=== PATIENT | male | born 1965 | race Caucasian/White ===

== ENCOUNTER 2020-02-28 15:00 | Emergency (ER) | payer SELFPAY ==
[~2020-02-28] VITALS: Ht 177.8 cm; Wt 70.5 kg
[2020-02-28 15:06] VITALS: BP 108/63
== END 2020-02-28 19:06 | disposition left against medical advice (07) ==
LOC: EMS 15:00
DX: T14.8XXA Other injury of unspecified body region, initial encounter (principal); Z53.21 Procedure and treatment not carried out due to patient leaving prior to being seen by health care provider; X58.XXXA Exposure to other specified factors, initial encounter; Y93.89 Activity, other specified; Y92.89 Other specified places as the place of occurrence of the external cause; Y99.8 Other external cause status

== ENCOUNTER 2020-06-09 17:58 | Inpatient (IN) | payer MEDICAID ==
[~2020-06-09] VITALS: Ht 177.8 cm; Wt 82.2 kg
[2020-06-09] MEDS ORDERED: DIVA125T32 PO (18:04)
[2020-06-09] MEDS ORDERED: RISP0.5T39 PO (18:04)
[2020-06-09] MEDS ORDERED: BENZ0.5T44 PO (18:04)
[2020-06-09 21:00] VITALS: BP 102/63
[2020-06-09] MEDS ORDERED: INFLUENZA VIRUS VACCINE QVS 2020-21 (6MO+)/PF 60 MCG/0.5 ML SYRINGE IM ONE (21:15)
[2020-06-10 03:36] VITALS: BP 110/68
[2020-06-10 08:14] LABS: BASOPHILS % (AUTO) 0.9 % (0.0-2.0); EOSINOPHILS % (AUTO) 2.2 % (1.0-6.0); HEMATOCRIT 37.5 % (41-53); HEMOGLOBIN 12.3 g/dL (13.5-17.5); LYMPHOCYTES # (AUTO) 1.1 K/uL (1.0-4.8); MEAN CORPUSCULAR HEMOGLOBIN 26.5 pg (26.0-34.0); MEAN CORPUSCULAR HGB CONC 32.9 G/dL (31.0-37.0); MEAN CORPUSCULAR VOLUME 81 fL (80-100); MONOCYTES # (AUTO) 0.4 K/uL (0.1-1.0); NEUTROPHILS # (AUTO) 7.1 K/uL (1.8-7.7); NEUTROPHILS % (AUTO) 79.9 % (40.0-70.0); PLATELET COUNT (AUTO) 348 K/uL (150-450); RED BLOOD CELL COUNT(AUTO) 4.64 MIL/uL (4.50-5.90)
[2020-06-10 08:27] LABS: HEMOGLOBIN A1C 5.8 % (3.8-5.6)
[2020-06-10 08:48] LABS: ALANINE AMINOTRANSFERASE 41 U/L (12-78); ALBUMIN 3.1 g/dL (3.4-5.0); ALKALINE PHOSPHATASE 60 U/L (46-116); ANION GAP 5 mmol/L (8-16); ASPARTATE AMINOTRANSFERASE 23 U/L (15-37); BILIRUBIN,TOTAL 0.3 mg/dL (0.1-1.0); CALCIUM, TOTAL 8.5 mg/dL (8.8-10.5); CARBON DIOXIDE 28 mmol/L (22-29); CHLORIDE 107 mmol/L (98-107); CHOLESTEROL 123 mg/dL (131-200); CREATININE 0.95 mg/dL (0.60-1.30); FREE T4 (FREE THYROXINE) 1.24 ng/dL (0.76-1.46); GLOMERULAR FILTR. RATE CALC > 60 mL/min (>60); GLUCOSE,RANDOM 113 mg/dL (70-110); HDL CHOLESTEROL 61 mg/dL (40-60); LDL CHOL (CALC.) 50 mg/dL (0-130); POTASSIUM 3.7 mmol/L (3.5-5.1); SODIUM SERUM 140 mmol/L (136-145); THYROID STIMULATING HORMONE 0.43 uIU/mL (0.36-3.74); TOTAL PROTEIN, SERUM 7.5 g/dL (6.4-8.2); TRIGLYCERIDES 58 mg/dL (15-150); UREA NITROGEN, BLOOD 11 mg/dL (7-18)
[2020-06-10] MEDS: RisperiDONE 2 MG TABLET PO SCH ×2 (08:49→17:07)
[2020-06-10 09:12] VITALS: BP 124/78
[2020-06-10] MEDS ORDERED: DOCUSATE SODIUM 100 MG CAPSULE PO PRN (11:45)
[2020-06-10] MEDS ORDERED: BENZOCAINE/MENTHOL LOZENGE PO PRN (11:45)
[2020-06-10] MEDS ORDERED: ALBUTEROL SULFATE HFA 90 MCG/PUFF 8 GM INHALER IH PRN (11:45)
[2020-06-10] MEDS ORDERED: ONDANSETRON HCL 4 MG TABLET PO PRN (11:45)
[2020-06-10] MEDS ORDERED: MAGNESIUM HYDROXIDE SUSPENSION 30 ML UDCUP PO PRN (11:45)
[2020-06-10] MEDS ORDERED: BACITRACIN 28 GM OINTMENT TP PRN (11:45)
[2020-06-10] MEDS ORDERED: LOPERAMIDE HCL 2 MG CAPSULE PO PRN (11:45)
[2020-06-10] MEDS ORDERED: ACETAMINOPHEN 325 MG TABLET PO PRN (11:45)
[2020-06-10] MEDS ORDERED: CloNIDine HCL 0.1 MG TABLET PO PRN (11:45)
[2020-06-10] MEDS ORDERED: OMEPRAZOLE 20 MG CAPSULE PO PRN (11:45)
[2020-06-10] MEDS ORDERED: PETROLATUM,WHITE 28 GM JELLY TP PRN (11:45)
[2020-06-10] MEDS ORDERED: IBUPROFEN 600 MG TABLET PO PRN (11:45)
[2020-06-11 01:36] VITALS: BP 134/89
[2020-06-11 08:52] VITALS: BP 127/82
[2020-06-11] MEDS: RisperiDONE 2 MG TABLET PO SCH ×2 (09:54→18:23)
[2020-06-11] MEDS: LORazepam 2 MG TABLET PO PRN (10:52)
[2020-06-11] MEDS: HALOPERIDOL 5 MG TABLET PO PRN (10:52)
[2020-06-11 16:53] VITALS: BP 126/81
[2020-06-12 06:29] VITALS: BP 121/79
[2020-06-12 08:46] VITALS: BP 145/92
[2020-06-12] MEDS: RisperiDONE 2 MG TABLET PO SCH (08:58)
[2020-06-12] MEDS: HALOPERIDOL 5 MG TABLET PO PRN (08:58)
[2020-06-12] MEDS: LORazepam 2 MG TABLET PO PRN (08:58)
[2020-06-12] MEDS ORDERED: DiphenhydrAMINE HCL 50 MG/ML VIAL IM ONE (09:30)
[2020-06-12] MEDS: OLANZapine 5 MG TABLET PO SCH (20:31)
[2020-06-13 02:35] VITALS: BP 130/91
[2020-06-13 08:20] VITALS: BP 133/84
[2020-06-13] MEDS: LORazepam 2 MG TABLET PO PRN (10:58)
[2020-06-13] MEDS: HALOPERIDOL 5 MG TABLET PO PRN (10:58)
[2020-06-13 16:24] VITALS: BP 120/75
[2020-06-13] MEDS: OLANZapine 5 MG TABLET PO SCH (21:12)
[2020-06-14 01:18] VITALS: BP 125/68
[2020-06-14 08:59] VITALS: BP 119/81
[2020-06-14] MEDS: LORazepam 2 MG TABLET PO PRN (11:03)
[2020-06-14 16:24] VITALS: BP 100/57
[2020-06-14] MEDS: OLANZapine 5 MG TABLET PO SCH (20:16)
[2020-06-14] MEDS: ZOLPIDEM TARTRATE 10 MG TABLET PO PRN (20:52)
[2020-06-15 04:41] VITALS: BP 118/77
[2020-06-15 17:34] VITALS: BP 130/82
[2020-06-15] MEDS: ZOLPIDEM TARTRATE 10 MG TABLET PO PRN (19:48)
[2020-06-15] MEDS: OLANZapine 5 MG TABLET PO SCH (20:00)
[2020-06-16 03:53] VITALS: BP 116/74
[2020-06-16 08:44] VITALS: BP 124/74
[2020-06-16] MEDS: HALOPERIDOL 5 MG TABLET PO PRN (09:53)
[2020-06-16] MEDS: LORazepam 2 MG TABLET PO PRN (09:53)
[2020-06-16 16:20] VITALS: BP 135/90
[2020-06-16] MEDS: OLANZapine 7.5 MG TABLET PO SCH (21:00)
[2020-06-17 04:26] VITALS: BP 121/70
[2020-06-17 09:02] LABS: % IRON SATURATION 7.6 % (30-44)
[2020-06-17] MEDS: HALOPERIDOL 5 MG TABLET PO PRN ×2 (09:09→18:23)
[2020-06-17] MEDS: MULTIVITAMINS WITH MINERALS, THERAPEUTIC TABLET PO SCH (09:09)
[2020-06-17 09:24] VITALS: BP 115/76
[2020-06-17] MEDS: LORazepam 2 MG TABLET PO PRN ×2 (11:16→18:23)
[2020-06-17 17:12] VITALS: BP 115/71
[2020-06-17] MEDS: OLANZapine 7.5 MG TABLET PO SCH (20:25)
[2020-06-17] MEDS: ZOLPIDEM TARTRATE 10 MG TABLET PO PRN (20:26)
[2020-06-18 05:14] VITALS: BP 112/67
[2020-06-18 08:39] VITALS: BP 127/76
[2020-06-18] MEDS: MULTIVITAMINS WITH MINERALS, THERAPEUTIC TABLET PO SCH (08:58)
[2020-06-18] MEDS: LORazepam 2 MG TABLET PO PRN ×2 (09:03→16:50)
[2020-06-18 17:06] VITALS: BP 121/78
[2020-06-18] MEDS: OLANZapine 7.5 MG TABLET PO SCH (20:59)
[2020-06-19 04:44] VITALS: BP 119/72
[2020-06-19] MEDS: LORazepam 2 MG TABLET PO PRN ×2 (06:38→16:29)
[2020-06-19 08:16] VITALS: BP 130/81
[2020-06-19] MEDS: MULTIVITAMINS WITH MINERALS, THERAPEUTIC TABLET PO SCH (09:25)
[2020-06-19 16:38] VITALS: BP 106/66
[2020-06-19] MEDS: OLANZapine 7.5 MG TABLET PO SCH (20:33)
[2020-06-20 05:01] VITALS: BP 123/85
[2020-06-20 08:11] VITALS: BP 126/75
[2020-06-20] MEDS: HALOPERIDOL 5 MG TABLET PO PRN ×2 (08:39→13:53)
[2020-06-20] MEDS: MULTIVITAMINS WITH MINERALS, THERAPEUTIC TABLET PO SCH (08:39)
[2020-06-20] MEDS: LORazepam 2 MG TABLET PO PRN (08:40)
[2020-06-20 17:00] VITALS: BP 129/80
[2020-06-20] MEDS: OLANZapine 7.5 MG TABLET PO SCH (21:12)
[2020-06-21 02:41] VITALS: BP 128/78
[2020-06-21] MEDS: ZOLPIDEM TARTRATE 10 MG TABLET PO PRN (02:46)
[2020-06-21] MEDS: MULTIVITAMINS WITH MINERALS, THERAPEUTIC TABLET PO SCH (08:25)
[2020-06-21 08:41] VITALS: BP 134/94
[2020-06-21] MEDS: LORazepam 2 MG TABLET PO PRN (10:02)
[2020-06-21 16:10] VITALS: BP 136/86
[2020-06-21] MEDS: HALOPERIDOL 5 MG TABLET PO PRN (17:30)
[2020-06-21] MEDS: OLANZapine 7.5 MG TABLET PO SCH (20:40)
[2020-06-22 01:01] VITALS: BP 122/83
[2020-06-22 08:55] VITALS: BP 106/60
[2020-06-22] MEDS: MULTIVITAMINS WITH MINERALS, THERAPEUTIC TABLET PO SCH (09:31)
[2020-06-22] MEDS: LORazepam 2 MG TABLET PO PRN (14:27)
[2020-06-22 16:19] VITALS: BP 11/62
[2020-06-22] MEDS: OLANZapine 7.5 MG TABLET PO SCH (20:36)
[2020-06-22] MEDS: ZOLPIDEM TARTRATE 10 MG TABLET PO PRN (23:07)
[2020-06-23 05:00] VITALS: BP 129/78
[2020-06-23 08:31] VITALS: BP 114/60
[2020-06-23] MEDS: MULTIVITAMINS WITH MINERALS, THERAPEUTIC TABLET PO SCH (09:34)
[2020-06-23] MEDS: LORazepam 2 MG TABLET PO PRN ×2 (10:32→20:31)
[2020-06-23 16:35] VITALS: BP 113/79
[2020-06-23] MEDS: OLANZapine 7.5 MG TABLET PO SCH (20:29)
[2020-06-24 00:38] VITALS: BP 119/80
[2020-06-24 08:30] VITALS: BP 112/66
[2020-06-24] MEDS: HALOPERIDOL 5 MG TABLET PO PRN (08:40)
[2020-06-24] MEDS: LORazepam 2 MG TABLET PO PRN ×2 (08:40→16:17)
[2020-06-24] MEDS: MULTIVITAMINS, THERAPEUTIC TABLET PO SCH (08:40)
[2020-06-24 16:32] VITALS: BP 125/81
[2020-06-24] MEDS: OLANZapine 7.5 MG TABLET PO SCH (20:06)
[2020-06-24] MEDS: ZOLPIDEM TARTRATE 10 MG TABLET PO PRN (20:06)
[2020-06-25 03:28] VITALS: BP 118/76
[2020-06-25] MEDS: MULTIVITAMINS, THERAPEUTIC TABLET PO SCH (06:59)
[2020-06-25 09:43] VITALS: BP 99/66
[2020-06-25] MEDS: LORazepam 2 MG TABLET PO PRN ×2 (12:45→18:06)
[2020-06-25] MEDS: HALOPERIDOL 5 MG TABLET PO PRN ×2 (12:47→18:06)
[2020-06-25 16:22] VITALS: BP 119/75
[2020-06-25] MEDS: OLANZapine 7.5 MG TABLET PO SCH (20:33)
[2020-06-26 05:50] VITALS: BP 129/79
[2020-06-26] MEDS: MULTIVITAMINS, THERAPEUTIC TABLET PO SCH (06:46)
[2020-06-26 08:32] VITALS: BP 112/62
[2020-06-26] MEDS: LORazepam 2 MG TABLET PO PRN (14:33)
[2020-06-26 16:15] VITALS: BP 123/90
[2020-06-26] MEDS: OLANZapine 7.5 MG TABLET PO SCH (20:01)
[2020-06-27 00:42] VITALS: BP 117/65
[2020-06-27] MEDS: MULTIVITAMINS, THERAPEUTIC TABLET PO SCH (06:48)
[2020-06-27 08:26] VITALS: BP 128/66
[2020-06-27 16:25] VITALS: BP 131/82
[2020-06-27] MEDS: OLANZapine 7.5 MG TABLET PO SCH (20:23)
[2020-06-27] MEDS: MAG HYDROX/AL HYDROX/SIMETH ES 30 ML SUSPENSION UDCUP PO PRN (21:23)
[2020-06-28] MEDS: ZOLPIDEM TARTRATE 10 MG TABLET PO PRN (00:09)
[2020-06-28 00:50] VITALS: BP 128/82
[2020-06-28] MEDS: MULTIVITAMINS, THERAPEUTIC TABLET PO SCH (07:12)
[2020-06-28 08:27] VITALS: BP 130/80
[2020-06-28 16:32] VITALS: BP 119/80
[2020-06-28] MEDS: OLANZapine 7.5 MG TABLET PO SCH (19:52)
[2020-06-29 04:49] VITALS: BP 121/78
[2020-06-29 08:23] VITALS: BP 133/86
[2020-06-29] MEDS: MULTIVITAMINS, THERAPEUTIC TABLET PO SCH (09:08)
[2020-06-29 16:48] VITALS: BP 130/80
[2020-06-29] MEDS: OLANZapine 7.5 MG TABLET PO SCH (20:48)
[2020-06-30 03:27] VITALS: BP 129/82
[2020-06-30] MEDS: MULTIVITAMINS, THERAPEUTIC TABLET PO SCH (06:36)
[2020-06-30] MEDS: MAG HYDROX/AL HYDROX/SIMETH ES 30 ML SUSPENSION UDCUP PO PRN (07:49)
[2020-06-30 08:33] VITALS: BP 126/68
[2020-06-30] MEDS: HALOPERIDOL 5 MG TABLET PO PRN (16:19)
[2020-06-30] MEDS: LORazepam 2 MG TABLET PO PRN (16:19)
[2020-06-30 16:26] VITALS: BP 126/88
[2020-06-30] MEDS: OLANZapine 7.5 MG TABLET PO SCH (20:22)
[2020-07-01] MEDS: MULTIVITAMINS, THERAPEUTIC TABLET PO SCH (06:45)
[2020-07-01 06:53] VITALS: BP 138/81
[2020-07-01 08:16] VITALS: BP 129/68
[2020-07-01 08:35] LABS: COVID AG,FIA SOURCE NASOPHARYNGEAL
[2020-07-01 16:53] VITALS: BP 136/93
[2020-07-01] MEDS: ZOLPIDEM TARTRATE 10 MG TABLET PO PRN (20:49)
[2020-07-01] MEDS: OLANZapine 7.5 MG TABLET PO SCH (20:49)
[2020-07-02 05:17] VITALS: BP 125/78
[2020-07-02] MEDS: MULTIVITAMINS, THERAPEUTIC TABLET PO SCH (06:53)
[2020-07-02] MEDS: LORazepam 2 MG TABLET PO PRN ×2 (08:41→23:39)
[2020-07-02] MEDS: HALOPERIDOL 5 MG TABLET PO PRN ×2 (08:41→23:39)
[2020-07-02 09:24] VITALS: BP 141/72
[2020-07-02 16:28] VITALS: BP 119/68
[2020-07-02] MEDS: OLANZapine 7.5 MG TABLET PO SCH (20:03)
[2020-07-02] MEDS: ZOLPIDEM TARTRATE 10 MG TABLET PO PRN (22:02)
[2020-07-03 00:01] VITALS: BP 106/80
[2020-07-03] MEDS: MULTIVITAMINS, THERAPEUTIC TABLET PO SCH (06:42)
[2020-07-03 09:00] VITALS: BP 101/60
[2020-07-03] MEDS: HALOPERIDOL 5 MG TABLET PO PRN (09:07)
[2020-07-03] MEDS: LORazepam 2 MG TABLET PO PRN (09:07)
[2020-07-03 16:35] VITALS: BP 119/65
[2020-07-03] MEDS: OLANZapine 7.5 MG TABLET PO SCH (20:50)
[2020-07-03] MEDS: ZOLPIDEM TARTRATE 10 MG TABLET PO PRN (21:02)
[2020-07-04 01:24] VITALS: BP 116/74
[2020-07-04] MEDS: MULTIVITAMINS, THERAPEUTIC TABLET PO SCH (06:17)
[2020-07-04 08:15] VITALS: BP 108/83
[2020-07-04] MEDS: LORazepam 2 MG TABLET PO PRN (14:50)
[2020-07-04] MEDS ORDERED: DiphenhydrAMINE HCL 50 MG/ML VIAL ONE (15:13)
[2020-07-04] MEDS ORDERED: DiphenhydrAMINE HCL 50 MG/ML VIAL IM ONE (15:15)
[2020-07-04] MEDS: BENZTROPINE MESYLATE 1 MG TABLET PO SCH (16:05)
[2020-07-04 16:24] VITALS: BP 113/78
[2020-07-04] MEDS: OLANZapine 7.5 MG TABLET PO SCH (20:20)
[2020-07-04] MEDS: ZOLPIDEM TARTRATE 10 MG TABLET PO PRN (20:24)
[2020-07-04 21:30] VITALS: BP 115/58
[2020-07-05 04:57] VITALS: BP 144/89
[2020-07-05] MEDS: MULTIVITAMINS, THERAPEUTIC TABLET PO SCH (06:33)
[2020-07-05] MEDS: BENZTROPINE MESYLATE 1 MG TABLET PO SCH (08:24)
[2020-07-05] MEDS ORDERED: BENZ1TAB10 PO (10:20)
[2020-07-05] MEDS ORDERED: OLAN10TA3 PO (10:20)
== END 2020-07-05 11:50 | disposition home or self-care (01) | DRG 750 ==
LOC: B3A 20:57 → B2S 06-25 13:47
PROVIDERS: ADMIT Psychiatry & Neurology Psychiatry; ATTEND Psychiatry & Neurology Psychiatry
DX: F25.9 Schizoaffective disorder, unspecified (principal); R45.851 Suicidal ideations; Z59.0 Homelessness; F17.200 Nicotine dependence, unspecified, uncomplicated; F12.90 Cannabis use, unspecified, uncomplicated; F41.9 Anxiety disorder, unspecified; G47.00 Insomnia, unspecified; K59.00 Constipation, unspecified; Z20.822 Contact with and (suspected) exposure to COVID-19; Z23 Encounter for immunization
CPT/HCPCS: 83036; 83540; 83550; 84439; 84443; 87426; 90686; J1200

== ENCOUNTER 2020-08-20 16:02 | Emergency (ER) | payer MEDICAID, OTHER ==
[~2020-08-20] VITALS: Ht 180.3 cm; Wt 80.9 kg
[~2020-08-20 16:02] MED LIST: BENZ1TAB10 PO; OLAN10TA74 PO
[2020-08-20 17:58] LABS: AMPHET/METH SCREEN,URINE NEGATIVE (NEGATIVE); BARBITURATE SCREEN, URINE NEGATIVE (NEGATIVE); BENZODIAZEPINES SCREEN,URINE NEGATIVE (NEGATIVE); CANNABINOID SCREEN,URINE POSITIVE (NEGATIVE); COCAINE SCREEN,URINE NEGATIVE (NEGATIVE); METHADONE SCREEN, URINE NEGATIVE (NEGATIVE); OPIATE SCREEN,URINE NEGATIVE (NEGATIVE); PHENCYCLIDINE SCREEN,URINE NEGATIVE (NEGATIVE)
[2020-08-20 18:17] LABS: BASOPHILS % (AUTO) 1.9 % (0.0-2.0); EOSINOPHILS % (AUTO) 2.4 % (1.0-6.0); HEMATOCRIT 37.7 % (41-53); HEMOGLOBIN 12.1 g/dL (13.5-17.5); LYMPHOCYTES # (AUTO) 1.7 K/uL (1.0-4.8); LYMPHOCYTES % (AUTO) 31.2 % (22.0-44.0); MEAN CORPUSCULAR HEMOGLOBIN 26.1 pg (26.0-34.0); MEAN CORPUSCULAR VOLUME 81 fL (80-100); MONOCYTES # (AUTO) 0.6 K/uL (0.1-1.0); MONOCYTES % (AUTO) 11.2 % (2.0-9.0); NEUTROPHILS # (AUTO) 2.9 K/uL (1.8-7.7); NEUTROPHILS % (AUTO) 53.3 % (40.0-70.0); PLATELET COUNT (AUTO) 308 K/uL (150-450); RED BLOOD CELL COUNT(AUTO) 4.64 MIL/uL (4.50-5.90); RED CELL DISTRIBUTION WIDTH 17.5 % (11.5-14.5)
[2020-08-20 18:28] LABS: ANION GAP 8 mmol/L (8-16); CALCIUM, TOTAL 8.1 mg/dL (8.8-10.5); CARBON DIOXIDE 28 mmol/L (22-29); CHLORIDE 104 mmol/L (98-107); CREATININE 0.87 mg/dL (0.60-1.30); GLOMERULAR FILTR. RATE CALC > 60 mL/min (>60); GLUCOSE,RANDOM 89 mg/dL (70-110); POTASSIUM 3.9 mmol/L (3.5-5.1); SODIUM SERUM 140 mmol/L (136-145); UREA NITROGEN, BLOOD 12 mg/dL (7-18)
[2020-08-20 18:31] LABS: ALANINE AMINOTRANSFERASE 51 U/L (12-78); ALBUMIN 3.8 g/dL (3.4-5.0); ALKALINE PHOSPHATASE 70 U/L (46-116); ASPARTATE AMINOTRANSFERASE 31 U/L (15-37); BILIRUBIN,TOTAL 0.4 mg/dL (0.1-1.0); TOTAL PROTEIN, SERUM 7.5 g/dL (6.4-8.2)
[2020-08-20 18:49] LABS: COVID AG,FIA SOURCE NASOPHARYNGEAL
[2020-08-20] MEDS ORDERED: LORazepam 1 MG TABLET PO ONE (19:15)
[2020-08-20] MEDS ORDERED: IBUPROFEN 600 MG TABLET PO ONE (19:30)
[2020-08-20 19:40] VITALS: BP 129/77
== END 2020-08-20 19:50 | disposition home or self-care (01) ==
LOC: EMS 16:02
DX: F20.9 Schizophrenia, unspecified (principal); F17.210 Nicotine dependence, cigarettes, uncomplicated; F41.9 Anxiety disorder, unspecified; Z20.822 Contact with and (suspected) exposure to COVID-19
CPT/HCPCS: 36415; 80053; 80307; 85025; 87426; 99284; G0480; 99285

== ENCOUNTER 2020-10-10 16:10 | Emergency (ER) | payer OTHER ==
[~2020-10-10] VITALS: Ht 180.3 cm; Wt 71.8 kg
[2020-10-10 17:27] LABS: BASOPHILS % (AUTO) 1.2 % (0.0-2.0); EOSINOPHILS % (AUTO) 1.4 % (1.0-6.0); HEMATOCRIT 37.2 % (41-53); HEMOGLOBIN 12.1 g/dL (13.5-17.5); LYMPHOCYTES # (AUTO) 1.3 K/uL (1.0-4.8); LYMPHOCYTES % (AUTO) 20.6 % (22.0-44.0); MEAN CORPUSCULAR HEMOGLOBIN 26.7 pg (26.0-34.0); MEAN CORPUSCULAR HGB CONC 32.6 G/dL (31.0-37.0); MEAN CORPUSCULAR VOLUME 82 fL (80-100); MONOCYTES # (AUTO) 0.5 K/uL (0.1-1.0); NEUTROPHILS # (AUTO) 4.2 K/uL (1.8-7.7); NEUTROPHILS % (AUTO) 68.8 % (40.0-70.0); PLATELET COUNT (AUTO) 295 K/uL (150-450); RED BLOOD CELL COUNT(AUTO) 4.54 MIL/uL (4.50-5.90); RED CELL DISTRIBUTION WIDTH 16.7 % (11.5-14.5)
[2020-10-10 17:33] LABS: AMPHET/METH SCREEN,URINE NEGATIVE (NEGATIVE); BARBITURATE SCREEN, URINE NEGATIVE (NEGATIVE); BENZODIAZEPINES SCREEN,URINE NEGATIVE (NEGATIVE); CANNABINOID SCREEN,URINE NEGATIVE (NEGATIVE); COCAINE SCREEN,URINE NEGATIVE (NEGATIVE); METHADONE SCREEN, URINE NEGATIVE (NEGATIVE); OPIATE SCREEN,URINE NEGATIVE (NEGATIVE)
[2020-10-10 17:34] LABS: PHENCYCLIDINE SCREEN,URINE NEGATIVE (NEGATIVE)
[2020-10-10 17:35] LABS: ANION GAP 4 mmol/L (8-16); CALCIUM, TOTAL 8.3 mg/dL (8.8-10.5); CARBON DIOXIDE 29 mmol/L (22-29); CHLORIDE 105 mmol/L (98-107); CREATININE 0.67 mg/dL (0.60-1.30); GLOMERULAR FILTR. RATE CALC > 60 mL/min (>60); GLUCOSE,RANDOM 99 mg/dL (70-110); POTASSIUM 4.2 mmol/L (3.5-5.1); SODIUM SERUM 138 mmol/L (136-145); UREA NITROGEN, BLOOD 17 mg/dL (7-18)
[2020-10-10 17:41] LABS: ALANINE AMINOTRANSFERASE 39 U/L (12-78); ALBUMIN 3.3 g/dL (3.4-5.0); ALKALINE PHOSPHATASE 65 U/L (46-116); ASPARTATE AMINOTRANSFERASE 23 U/L (15-37); BILIRUBIN,TOTAL 0.2 mg/dL (0.1-1.0)
[2020-10-10 19:36] LABS: COVID AG,FIA SOURCE NASOPHARYNGEAL
[2020-10-10 20:35] VITALS: BP 119/77
== END 2020-10-10 20:40 | disposition home or self-care (01) ==
LOC: EMS 16:35
DX: F20.9 Schizophrenia, unspecified (principal); F17.210 Nicotine dependence, cigarettes, uncomplicated; Z20.822 Contact with and (suspected) exposure to COVID-19
CPT/HCPCS: 36415; 80053; 80307; 85025; 87426; 99284; G0480